=== PATIENT | male | born 1990 | race Two or more races ===

== ENCOUNTER 2020-08-19 17:40 | Emergency (ER) | payer OTHER ==
[~2020-08-19] VITALS: Ht 182.9 cm; Wt 76.0 kg
[2020-08-19] MEDS ORDERED: BACITRACIN ZINC OINT UDPKT TOP ONE (18:45)
[2020-08-19 18:50] VITALS: BP 121/71
== END 2020-08-19 18:52 | disposition home or self-care (01) ==
LOC: ER 17:40
DX: Z48.02 Encounter for removal of sutures (principal)
CPT/HCPCS: 99282; Z7610